=== PATIENT | female | born 1965 | race Caucasian/White ===

== ENCOUNTER 2016-04-08 09:16 | Emergency (ER) | payer OTHER, SELFPAY ==
[2016-04-08] MEDS ORDERED: KETOROLAC 30 MG/ML VIAL (J1885) As Ordered ONE (09:54)
--- NOTE | 2016-04-08 10:42 | REP ---
LEFT ANKLE SERIES, FOUR VIEWS: Four views of the left ankle are performed. There is no acute fracture or dislocation. Ankle mortise is anatomic. Joint spaces appear unremarkable. IMPRESSION: No evidence of fracture or dislocation. Signed by David Molina MD 04/08/2016 01:20 P
--- NOTE | 2016-04-08 10:49 | REP ---
LEFT FOOT: Four views left foot performed. There is no acute fracture or dislocation. Old healed fracture is noted of the distal fifth metatarsal. IMPRESSION: No evidence of acute fracture or dislocation. Old healed fracture fifth metatarsal. Signed by David Molina MD 04/08/2016 01:20 P
--- NOTE | 2016-04-08 11:21 | EDDOCDS ---
Nurse's Notes [facility] Name: Bisi Leong Age: 50 yrs Sex: Female : 1965 Arrival Date: 04/08/2016 Time: 09:16 Bed PR Private MD: NO PRIMARY PHYSICIAN, . Diagnosis: Sprain of ankle-Left;Other sprain of left foot;Fracture of fifth metatarsal bone-Old and healed Presentation: 04/08 09:30 Presenting complaint: Patient states: Was standing on her bed to change a lightbulb jo3 yesterday and injured left ankle. Pain is worse today. Adult Sepsis Screening: The patient does not have new or worsening altered mentation. Patient's respiratory rate is less than 22. Systolic blood pressure is greater than 100. Patient has a qSOFA score of 0- Negative Sepsis Screen. Suicide/Homicide risk assessment- the patient denies having any suicidal and/or homicidal ideations and does not present with any other emotional, behavioral or mental health complaints. 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 Transition of care: patient was not received from another setting of care. 09:30 Acuity: BRENDA Level 4 jo3 09:30 Method Of Arrival: Walkin/Carried/Asstd jo3 Triage Assessment: 09:33 General: Appears in no apparent distress, Behavior is appropriate for age, cooperative. jo3 Pain: Pain currently is 6 out of 10 on a pain scale. At worst was 10 out of 10 on a pain scale. Pt Declines HIV testing. Neurological: Level of Consciousness is awake, alert, Oriented to person, place, time. Respiratory: Airway is patent Respiratory effort is even, unlabored. Derm: Skin is pink, warm & dry. 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 none - PMHx: none; - PSHx: none; - Social history: No barriers to communication noted, The patient speaks fluent Greek, Speaks appropriately for age, Smoking status: Patient uses tobacco products, heavy tobacco smoker. - Family history: Not pertinent. - : The pt / caregiver states he / she is not on anticoagulants. Home medication list is obtained from the patient. - Exposure Risk Screening:: None identified. Screenin:18 Screening information is obtained from the patient. Fall risk: No risks identified. ck1 Assistance ADL's: requires no assistance with activities of daily living. Abuse/DV Screen: The patient / caregiver reports he/she is: not in a situation that causes fear, pain or injury. Nutritional screening: No deficits noted. Advance Directives: Currently, there is no health care proxy. home support is adequate. Assessment: 11:19 General: Appears in no apparent distress, comfortable, Behavior is appropriate for age, ck1 cooperative. Pain: Location: left leg Pain currently is 4 out of 10 on a pain scale. Neurological: Level of Consciousness is awake, alert, obeys commands, Oriented to person, place, time. Derm: Skin is pink, warm & dry. Musculoskeletal: Circulation, motion, and sensation intact Range of motion intact in all extremities. Vital Signs: 09:17 BP 162 / 113; Pulse 94; Resp 18; Temp 97.6(O); Pulse Ox 98% on R/A; Weight 63.5 kg (R); elp Height 5 ft. 6 in. (167.64 cm) (R); Pain 10/10; 09:43 BP 130 / 86 LA Sitting (man/lg); jb5 11:19 BP 154 / 99; Pulse 69; Resp 18; Temp 95.0(T); Pulse Ox 98% on R/A; Pain 4/10; ck1 11:19 Pain 4/10; ck1 09:17 Body Mass Index 22.60 (63.50 kg, 167.64 cm) [facility] Vitals: 09:17 Log In Time: April 08, 2016 at 09:15. [facility] ED Course: 09:17 Patient visited by Aminata Combs PCA. elp 09:17 NO PRIMARY PHYSICIAN, . is Private Physician. elp 09:17 Patient moved to Waiting elp 09:18 Patient visited by Aminata Combs PCA. elp 09:19 Patient moved to Pre RCE elp 09:32 Triage Initiated jo3 09:36 Patient visited by Elizabeth Coats RN. jo3 09:36 Patient moved to Triage 2 jo3 09:40 Hale[facility] Roche [facility]-C [facility]. ef1 09:40 Mario Cottrell MD is Attending Physician. ef1 09:40 Patient visited by Haleigh Roche PA-C. ef1 09:43 Patient visited by Ashley Woodson PCA. jb5 09:59 Patient moved to TR1 ck1 10:19 [facility] Payment Agreement was scanned into [employer] and attached to record. mm15 10:34 Patient visited by Haleigh Roche PA-C. ef1 11:04 Patient moved to PR1 / 25 jb5 11:05 Patient visited by Karo Mazariegos RN. ck1 11:06 [facility]. ef1 11:06 [facility] is Referral Physician. ef1 11:13 Ankle, Complete Returned. EDMS 11:13 Foot, Complete Returned. EDMS 11:17 Patient visited by Ashley Woodson PCA. jb5 11:17 Crutch training done. air cast. jb5 11:19 The patient / caregiver is instructed regarding the plan of care and ED course. ck1 11:19 No IV's were initiated during this patient's visit. No procedures done that require ck1 assistance. Administered Medications: 10:05 Drug: ketorolac 60 mg [ketorolac 30 mg/mL (1 mL) injection solution (2 mL)] Route: IM; jo3 Site: right gluteus; 11:19 Follow up: Pain 4/10 Adult; Response: No Adverse Reaction; Pain is decreased ck1 Order Results: Radiology Order: Ankle, Complete Test: Ankle, Complete REASON FOR EXAMINATION: Trauma; LEFT ANKLE SERIES, FOUR VIEWS:; ; Four views of the left ankle are performed. There is no acute fracture or; dislocation. Ankle mortise is anatomic. Joint spaces appear unremarkable.; ; IMPRESSION:; No evidence of fracture or dislocation.; ; Unreviewed; Radiology Order: Foot, Complete Test: Foot, Complete REASON FOR EXAMINATION: Trauma; LEFT FOOT:; ; Four views left foot performed. There is no acute fracture or dislocation. Old; healed fracture is noted of the distal fifth metatarsal.; ; IMPRESSION:; No evidence of acute fracture or dislocation. Old healed fracture fifth; metatarsal.; ; ; ; Unreviewed; Outcome: 11:06 Discharge ordered by Provider. ef1 11:18 Discharge Assessment: Patient awake, alert and oriented x 3. No cognitive and/or ck1 functional deficits noted. Patient verbalized understanding of disposition instructions. patient administered narcotics - no. The following High Risk Discharge criteria are identified: None. Discharged to home via wheelchair, with crutches. Condition: stable. Discharge instructions given to patient, Instructed on discharge instructions, follow up and referral plans. medication usage, Rest, Ice, Compression and Elevation. crutch walking, Demonstrated understanding of instructions, crutch walking, medications, Pt was receptive of discharge instructions/ teaching. Prescriptions given X 1, Work note provided to patient. No special radiology studies were completed. Property :Personal belongings accompany Pt. 11:20 Patient left the ED. ck1 Signatures: Dispatcher [employer] EDAL Karo MazariegosRN RN ck1 Ashley Woodson, BUSINESS CONTINUITY CONSULTANT BUSINESS CONTINUITY CONSULTANT jb5 Elizabeth CoatsRN RN jo3 Haleigh Roche, PA-C PA-C ef1 Leyla Garcia mm15 Aminata Combs, BUSINESS CONTINUITY CONSULTANT BUSINESS CONTINUITY CONSULTANT elp MTDD
--- NOTE | 2016-04-08 11:21 | EDDOCDS ---
Physician Documentation [facility] Name: Bisi Leong Age: 50 yrs Sex: Female : 1965 Arrival Date: 04/08/2016 Time: 09:16 Bed PR Private MD: NO PRIMARY PHYSICIAN, . Disposition: 04/08/16 11:06 Discharged to Home/Self Care. Impression: Sprain of ankle - Left, Other sprain of left foot, Fracture of fifth metatarsal bone - Old and healed. - Condition is Stable. - Discharge Instructions: Foot Sprain, Ankle Sprain, [id number], Metatarsal Fracture, Undisplaced. - Prescriptions for Mobic 7.5 mg Oral Tablet - take 1 tablet by ORAL route once daily take with food; 20 tablet. - Work Release Form - 5 day, Medication Reconciliation, Local Pharmacy Hours, Referral List Call for Appointment form. - Follow up: [facility]; When: 1 - 2 days; Reason: Further diagnostic work-up, Recheck today's complaints, Continuance of care. [facility] ; When: 1 - 2 days; Reason: Recheck today's complaints, Continuance of care. Follow up: Emergency Department; Reason: Worsening of conditions. - Problem is new. - Symptoms have improved. Historical: - Allergies: No known drug Allergies; - Home Meds: 1. none - PMHx: none; - PSHx: none; - Social history: No barriers to communication noted, The patient speaks fluent Kosovan, Speaks appropriately for age, Smoking status: Patient uses tobacco products, heavy tobacco smoker. - Family history: Not pertinent. - : The pt / caregiver states he / she is not on anticoagulants. Home medication list is obtained from the patient. - Exposure Risk Screening:: None identified. 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 6 in. (167.64 cm) (R); Pain 10/10; 09:43 BP 130 / 86 LA Sitting (man/lg); jb5 11:19 BP 154 / 99; Pulse 69; Resp 18; Temp 95.0(T); Pulse Ox 98% on R/A; Pain 4/10; ck1 11:19 Pain 4/10; ck1 09:17 Body Mass Index 22.60 (63.50 kg, 167.64 cm) elp Procedures: 11:03 Fracture care/splinting: Splint applied to left lateral ankle using Air Cast, applied ef1 by tech. Examined by me, post splint application: neurovascular intact, 2+ distal pulses palpable, brisk capillary refill noted, Patient tolerated well. MDM: 09:40 Recheck B/P ordered. ef1 09:50 Ice Pack ordered. ef1 09:50 ketorolac 60 mg IM once ordered. ef1 09:51 Ankle, Complete Ordered. EDMS 09:53 Foot, Complete Ordered. EDMS 10:02 Financial registration complete. mm15 10:19 [facility] Payment Agreement was scanned into [employer] and attached to record. mm15 11:03 Apply Air Cast to Patient. ordered. ef1 11:03 Crutches ordered. ef1 Administered Medications: 10:05 Drug: ketorolac 60 mg [ketorolac 30 mg/mL (1 mL) injection solution (2 mL)] Route: IM; jo3 Site: right gluteus; 11:19 Follow up: Pain 4/10 Adult; Response: No Adverse Reaction; Pain is decreased ck1 Signatures: Dispatcher [employer] EDMS Karo Mazariegos RN RN ck1 Elizabeth Coats RN RN jo3 Haleigh Roche PAInna PAInna ef1 Leyla Garcia mm15 The chart was reviewed and I authenticate all verbal orders and agree with the evaluation and treatment provided.Attachments: 10:19 [facility] [place] mm15 MTDD
--- NOTE | 2016-04-10 12:21 | EDDOCDS ---
Physician Documentation [facility] Name: Bisi Leong Age: 50 yrs Sex: Female : 1965 Arrival Date: 04/08/2016 Time: 09:16 Bed PR Private MD: NO PRIMARY PHYSICIAN, . Disposition: 04/08/16 11:06 Discharged to Home/Self Care. Impression: Sprain of ankle - Left, Other sprain of left foot, Fracture of fifth metatarsal bone - Old and healed. - Condition is Stable. - Discharge Instructions: Foot Sprain, Ankle Sprain, [id number], Metatarsal Fracture, Undisplaced. - Prescriptions for Mobic 7.5 mg Oral Tablet - take 1 tablet by ORAL route once daily take with food; 20 tablet. - Work Release Form - 5 day, Medication Reconciliation, Local Pharmacy Hours, Referral List Call for Appointment form. - Follow up: [facility]; When: 1 - 2 days; Reason: Further diagnostic work-up, Recheck today's complaints, Continuance of care. [facility] ; When: 1 - 2 days; Reason: Recheck today's complaints, Continuance of care. Follow up: Emergency Department; Reason: Worsening of conditions. - Problem is new. - Symptoms have improved. Historical: - Allergies: No known drug Allergies; - Home Meds: 1. none - PMHx: none; - PSHx: none; - Social history: No barriers to communication noted, The patient speaks fluent Guatemalan, Speaks appropriately for age, Smoking status: Patient uses tobacco products, heavy tobacco smoker. - Family history: Not pertinent. - : The pt / caregiver states he / she is not on anticoagulants. Home medication list is obtained from the patient. - Exposure Risk Screening:: None identified. 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 6 in. (167.64 cm) (R); Pain 10/10; 09:43 BP 130 / 86 LA Sitting (man/lg); jb5 11:19 BP 154 / 99; Pulse 69; Resp 18; Temp 95.0(T); Pulse Ox 98% on R/A; Pain 4/10; ck1 11:19 Pain 4/10; ck1 09:17 Body Mass Index 22.60 (63.50 kg, 167.64 cm) elp Procedures: 11:03 Fracture care/splinting: Splint applied to left lateral ankle using Air Cast, applied ef1 by tech. Examined by me, post splint application: neurovascular intact, 2+ distal pulses palpable, brisk capillary refill noted, Patient tolerated well. MDM: 09:40 Recheck B/P ordered. ef1 09:50 Ice Pack ordered. ef1 09:50 ketorolac 60 mg IM once ordered. ef1 09:51 Ankle, Complete Ordered. EDMS 09:53 Foot, Complete Ordered. EDMS 10:02 Financial registration complete. mm15 10: [facility] Payment Agreement was scanned into [employer] and attached to record. mm15 11:03 Apply Air Cast to Patient. ordered. ef1 11:03 Crutches ordered. ef1 14:54 T-Sheet-- Draft Copy was scanned into [employer] and attached to record. gb 14:54 Radiology Report was scanned into [employer] and attached to record. gb Administered Medications: 10:05 Drug: ketorolac 60 mg [ketorolac 30 mg/mL (1 mL) injection solution (2 mL)] Route: IM; jo3 Site: right gluteus; 11:19 Follow up: Pain 4/10 Adult; Response: No Adverse Reaction; Pain is decreased ck1 Signatures: Dispatcher [employer]Host EDOK Marley Whitman, Reg Reg gb Karo MazariegosRN RN ck1 Elizabeth Coats RN RN jo3 Haleigh Roche, PAInna PAInna ef1 Leyla Garcia mm15 The chart was reviewed and I authenticate all verbal orders and agree with the evaluation and treatment provided.Attachments: 10:19 [facility] Payment Agreement mm15 14:54 T-Sheet-- Draft Copy gb Chart Complete MTDD
--- NOTE | 2016-04-10 12:21 | EDDOCDS ---
Nurse's Notes [facility] Name: Bisi Leong Age: 50 yrs Sex: Female : 1965 Arrival Date: 04/08/2016 Time: 09:16 Bed PR Private MD: NO PRIMARY PHYSICIAN, . Diagnosis: Sprain of ankle-Left;Other sprain of left foot;Fracture of fifth metatarsal bone-Old and healed Presentation: 04/08 09:30 Presenting complaint: Patient states: Was standing on her bed to change a lightbulb jo3 yesterday and injured left ankle. Pain is worse today. Adult Sepsis Screening: The patient does not have new or worsening altered mentation. Patient's respiratory rate is less than 22. Systolic blood pressure is greater than 100. Patient has a qSOFA score of 0- Negative Sepsis Screen. Suicide/Homicide risk assessment- the patient denies having any suicidal and/or homicidal ideations and does not present with any other emotional, behavioral or mental health complaints. Status: Patient is not a mechanical service specialist or dependent. Transition of care: patient was not received from another setting of care. 09:30 Acuity: BRENDA Level 4 jo3 09:30 Method Of Arrival: Walkin/Carried/Asstd jo3 Triage Assessment: 09:33 General: Appears in no apparent distress, Behavior is appropriate for age, cooperative. jo3 Pain: Pain currently is 6 out of 10 on a pain scale. At worst was 10 out of 10 on a pain scale. Pt Declines HIV testing. Neurological: Level of Consciousness is awake, alert, Oriented to person, place, time. Respiratory: Airway is patent Respiratory effort is even, unlabored. Derm: Skin is pink, warm & dry. 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 none - PMHx: none; - PSHx: none; - Social history: No barriers to communication noted, The patient speaks fluent Turkmen, Speaks appropriately for age, Smoking status: Patient uses tobacco products, heavy tobacco smoker. - Family history: Not pertinent. - : The pt / caregiver states he / she is not on anticoagulants. Home medication list is obtained from the patient. - Exposure Risk Screening:: None identified. Screenin:18 Screening information is obtained from the patient. Fall risk: No risks identified. ck1 Assistance ADL's: requires no assistance with activities of daily living. Abuse/DV Screen: The patient / caregiver reports he/she is: not in a situation that causes fear, pain or injury. Nutritional screening: No deficits noted. Advance Directives: Currently, there is no health care proxy. home support is adequate. Assessment: 11:19 General: Appears in no apparent distress, comfortable, Behavior is appropriate for age, ck1 cooperative. Pain: Location: left leg Pain currently is 4 out of 10 on a pain scale. Neurological: Level of Consciousness is awake, alert, obeys commands, Oriented to person, place, time. Derm: Skin is pink, warm & dry. Musculoskeletal: Circulation, motion, and sensation intact Range of motion intact in all extremities. Vital Signs: 09:17 BP 162 / 113; Pulse 94; Resp 18; Temp 97.6(O); Pulse Ox 98% on R/A; Weight 63.5 kg (R); elp Height 5 ft. 6 in. (167.64 cm) (R); Pain 10/10; 09:43 BP 130 / 86 LA Sitting (man/lg); jb5 11:19 BP 154 / 99; Pulse 69; Resp 18; Temp 95.0(T); Pulse Ox 98% on R/A; Pain 4/10; ck1 11:19 Pain 4/10; ck1 09:17 Body Mass Index 22.60 (63.50 kg, 167.64 cm) [facility] Vitals: 09:17 Log In Time: April 08, 2016 at 09:15. [facility] ED Course: 09:17 Patient visited by Aminata Combs PCA. elp 09:17 NO PRIMARY PHYSICIAN, . is Private Physician. elp 09:17 Patient moved to Waiting elp 09:18 Patient visited by Aminata Combs PCA. elp 09:19 Patient moved to Pre RCE elp 09:32 Triage Initiated jo3 09:36 Patient visited by Elizabeth Coats RN. jo3 09:36 Patient moved to Triage 2 jo3 09:40 Hale[facility]. ef1 09:40 Mario Cottrell MD is Attending Physician. ef1 09:40 Patient visited by Haleigh Roche PA-C. ef1 09:43 Patient visited by Ashley Woodson PCA. jb5 09:59 Patient moved to TR1 ck1 10:19 [facility] Payment Agreement was scanned into [employer] and attached to record. mm15 10:34 Patient visited by Haleigh Roche PA-C. ef1 11:04 Patient moved to PR1 / 25 jb5 11:05 Patient visited by Karo Mazariegos RN. ck1 11:06 [facility] ef1 11:06 [facility] is Referral Physician. ef1 11:13 Ankle, Complete Returned. EDMS 11:13 Foot, Complete Returned. EDMS 11:17 Patient visited by Ashley Woodson PCA. jb5 11:17 Crutch training done. air cast. jb5 11:19 The patient / caregiver is instructed regarding the plan of care and ED course. ck1 11:19 No IV's were initiated during this patient's visit. No procedures done that require ck1 assistance. 14:54 T-Sheet-- Draft Copy was scanned into [employer] and attached to record. gb 14:54 Radiology Report was scanned into [employer] and attached to record. gb Administered Medications: 10:05 Drug: ketorolac 60 mg [ketorolac 30 mg/mL (1 mL) injection solution (2 mL)] Route: IM; jo3 Site: right gluteus; 11:19 Follow up: Pain 4/10 Adult; Response: No Adverse Reaction; Pain is decreased ck1 Order Results: Radiology Order: Ankle, Complete Test: Ankle, Complete REASON FOR EXAMINATION: Trauma; LEFT ANKLE SERIES, FOUR VIEWS:; ; Four views of the left ankle are performed. There is no acute fracture or; dislocation. Ankle mortise is anatomic. Joint spaces appear unremarkable.; ; IMPRESSION:; ; No evidence of fracture or dislocation.; ; ; Signed by; David Molina MD 04/08/2016 01:20 P; Radiology Order: Foot, Complete Test: Foot, Complete REASON FOR EXAMINATION: Trauma; LEFT FOOT:; ; Four views left foot performed. There is no acute fracture or dislocation. Old; healed fracture is noted of the distal fifth metatarsal.; ; IMPRESSION:; ; No evidence of acute fracture or dislocation. Old healed fracture fifth; metatarsal.; ; ; Signed by; David Molina MD 04/08/2016 01:20 P; Outcome: 11:06 Discharge ordered by Provider. ef1 11:18 Discharge Assessment: Patient awake, alert and oriented x 3. No cognitive and/or ck1 functional deficits noted. Patient verbalized understanding of disposition instructions. patient administered narcotics - no. The following High Risk Discharge criteria are identified: None. Discharged to home via wheelchair, with crutches. Condition: stable. Discharge instructions given to patient, Instructed on discharge instructions, follow up and referral plans. medication usage, Rest, Ice, Compression and Elevation. crutch walking, Demonstrated understanding of instructions, crutch walking, medications, Pt was receptive of discharge instructions/ teaching. Prescriptions given X 1, Work note provided to patient. No special radiology studies were completed. Property :Personal belongings accompany Pt. 11:20 Patient left the ED. ck1 Signatures: Dispatcher [employer] EDMS Marley Whitman, Reg Reg gb Karo MazariegosRN RN ck1 Ashley Woodson, SERVICE TEAM LEADER SERVICE TEAM LEADER jb5 Elizabeth Coats RN RN jo3 Haleigh Roche, PA-C PA-C ef1 Leyla Garcia mm15 Aminata Combs, SERVICE TEAM LEADER SERVICE TEAM LEADER elp Chart Complete MTDD
--- NOTE | 2016-04-10 12:21 | EDDOCDS ---
Physician Documentation [facility] Name: Bisi Leong Age: 50 yrs Sex: Female : 1965 Arrival Date: 04/08/2016 Time: 09:16 Bed PR Private MD: NO PRIMARY PHYSICIAN, . Disposition: 04/08/16 11:06 Discharged to Home/Self Care. Impression: Sprain of ankle - Left, Other sprain of left foot, Fracture of fifth metatarsal bone - Old and healed. - Condition is Stable. - Discharge Instructions: Foot Sprain, Ankle Sprain, [id number], Metatarsal Fracture, Undisplaced. - Prescriptions for Mobic 7.5 mg Oral Tablet - take 1 tablet by ORAL route once daily take with food; 20 tablet. - Work Release Form - 5 day, Medication Reconciliation, Local Pharmacy Hours, Referral List Call for Appointment form. - Follow up: [facility]; When: 1 - 2 days; Reason: Further diagnostic work-up, Recheck today's complaints, Continuance of care. [facility] ; When: 1 - 2 days; Reason: Recheck today's complaints, Continuance of care. Follow up: Emergency Department; Reason: Worsening of conditions. - Problem is new. - Symptoms have improved. Historical: - Allergies: No known drug Allergies; - Home Meds: 1. none - PMHx: none; - PSHx: none; - Social history: No barriers to communication noted, The patient speaks fluent [place], Speaks appropriately for age, Smoking status: Patient uses tobacco products, heavy tobacco smoker. - Family history: Not pertinent. - : The pt / caregiver states he / she is not on anticoagulants. Home medication list is obtained from the patient. - Exposure Risk Screening:: None identified. 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 6 in. (167.64 cm) (R); Pain 10/10; 09:43 BP 130 / 86 LA Sitting (man/lg); jb5 11:19 BP 154 / 99; Pulse 69; Resp 18; Temp 95.0(T); Pulse Ox 98% on R/A; Pain 4/10; ck1 11:19 Pain 4/10; ck1 09:17 Body Mass Index 22.60 (63.50 kg, 167.64 cm) elp Procedures: 11:03 Fracture care/splinting: Splint applied to left lateral ankle using Air Cast, applied ef1 by tech. Examined by me, post splint application: neurovascular intact, 2+ distal pulses palpable, brisk capillary refill noted, Patient tolerated well. MDM: 09:40 Recheck B/P ordered. ef1 09:50 Ice Pack ordered. ef1 09:50 ketorolac 60 mg IM once ordered. ef1 09:51 Ankle, Complete Ordered. EDMS 09:53 Foot, Complete Ordered. EDMS 10:02 Financial registration complete. mm15 10: [facility] Payment Agreement was scanned into [employer] and attached to record. mm15 11:03 Apply Air Cast to Patient. ordered. ef1 11:03 Crutches ordered. ef1 14:54 T-Sheet-- Draft Copy was scanned into [employer] and attached to record. gb 14:54 Radiology Report was scanned into [employer] and attached to record. gb Administered Medications: 10:05 Drug: ketorolac 60 mg [ketorolac 30 mg/mL (1 mL) injection solution (2 mL)] Route: IM; jo3 Site: right gluteus; 11:19 Follow up: Pain 4/10 Adult; Response: No Adverse Reaction; Pain is decreased ck1 Signatures: Dispatcher [employer] EDKY Marley Whitman, Reg Reg gb Karo MazariegosRN RN ck1 Elizabeth Coats RN RN jo3 Haleigh Roche, PAInna PAInna ef1 Leyla Garcia mm15 The chart was reviewed and I authenticate all verbal orders and agree with the evaluation and treatment provided.Attachments: 10:19 [facility] Payment Agreement mm15 14:54 T-Sheet-- Draft Copy gb Chart Complete MTDD
== END 2016-04-08 11:20 | disposition home or self-care (01) ==
LOC: M ED 09:16
DX: S93.402A Sprain of unspecified ligament of left ankle, initial encounter (principal); S93.602A Unspecified sprain of left foot, initial encounter; X58.XXXA Exposure to other specified factors, initial encounter; Y92.003 Bedroom of unspecified non-institutional (private) residence as the place of occurrence of the external cause; Y93.89 Activity, other specified; Y99.8 Other external cause status; F17.210 Nicotine dependence, cigarettes, uncomplicated
CPT/HCPCS: 73610; 73630; 96372; 99284; J1885

== ENCOUNTER → 2020-05-12 | Outpatient (REF) | payer OTHER ==
[~2020-05-12] MED LIST: BENA25CA4 PO; PEPC1TAB5 PO; PRED20TA PO
[2020-05-12 13:41] LABS: BASO # 0.1 10^3/uL (0.0-0.2); BASO % 0.6 % (0.0-1.0); EOS # 0.3 10^3/uL (0.0-0.5); EOS % 3.8 % (0.0-3.0); HEMATOCRIT 43.3 % (36.0-47.0); HEMOGLOBIN 14.1 g/dl (12.0-15.5); LYMPH % 24.4 % (24.0-44.0); MEAN CORPUSCULAR HEMOGLOBIN 32.9 pg (27.0-33.0); MEAN CORPUSCULAR HGB CONC 32.6 g/dl (32.0-36.5); MEAN CORPUSCULAR VOLUME 100.9 fl (80.0-96.0); MONO # 0.5 10^3/uL (0.0-0.8); NEUTROPHILS # 5.3 10^3/uL (1.5-8.5); NEUTROPHILS % 64.8 % (36.0-66.0); PLATELET COUNT, AUTOMATED 283 10^3/uL (150-450); RED BLOOD COUNT 4.29 10^6/uL (4.00-5.40); WHITE BLOOD COUNT 8.1 10^3/uL (4.0-10.0)
[2020-05-12 15:01] LABS: ALT/SGPT 28 U/L (12-78); BILIRUBIN,TOTAL 0.5 MG/DL (0.2-1.0); BLOOD UREA NITROGEN 6 MG/DL (7-18); CALCIUM LEVEL 9.1 MG/DL (8.5-10.1); CARBON DIOXIDE LEVEL 27 MEQ/L (21-32); CHLORIDE LEVEL 101 MEQ/L (98-107); CHOLESTEROL LEVEL 241 MG/DL (<200); CHOLESTEROL RISK RATIO 3.492 (<5); CREATININE FOR GFR 0.46 MG/DL (0.55-1.30); GLOMERULAR FILTRATION RATE > 60.0 (>51); GLUCOSE, FASTING 80 MG/DL (70-100); HDL CHOLESTEROL 69 MG/DL (>40); LDL CHOLESTEROL 156 MG/DL (<100); NON-HDL-C 172 MG/DL; POTASSIUM SERUM 4.3 MEQ/L (3.5-5.1); SODIUM LEVEL 135 MEQ/L (136-145); THYROID STIMULATING HORMONE 0.477 uIU/ML (0.358-3.740); TOTAL PROTEIN 6.8 GM/DL (6.4-8.2); TRIGLYCERIDES LEVEL 79 MG/DL (<150)
== END ==
LOC: M LAB REF 11:12
PROVIDERS: ATTEND Pediatrics
DX: R03.0 Elevated blood-pressure reading, without diagnosis of hypertension (principal)

== ENCOUNTER → 2020-05-22 | Outpatient (CLI) | payer OTHER ==
--- NOTE | 2020-05-22 08:09 | REP ---
INDICATION: FAMILY HX ISCHEMIC HEART DX/ANEURYSM COMPARISON: None. TECHNIQUE: Real time fuentes scale ultrasound examination using curved array transducer. FINDINGS: The abdominal aorta demonstrate age-related atherosclerotic changes without evidence for aneurysm. Proximal aorta: 2.5 x 2.5 cm Aorta at renal arteries: 1.6 x 1.7 cm Mid aorta: 1.7 x 1.6 cm Distal aorta: 1.3 x 1.2 cm Right common iliac artery: 0.7 x 0.9 cm Left common iliac artery: 0.8 x 0.9 cm IMPRESSION: Generalized age-related changes. No aneurysm. <Electronically signed by Malachi Bishop > 05/22/20 0825
== END ==
LOC: M RAD 07:06
PROVIDERS: ATTEND Pediatrics
DX: Z82.49 Family history of ischemic heart disease and other diseases of the circulatory system (principal)

== ENCOUNTER → 2022-04-07 | Outpatient (REF) | payer OTHER ==
[2022-04-07 16:50] LABS: BASO % 0.6 % (0.0-1.0); EOS # 0.3 10^3/uL (0.0-0.5); EOS % 4.8 % (0.0-3.0); HEMATOCRIT 42.3 % (36.0-47.0); HEMOGLOBIN 14.2 g/dl (12.0-15.5); LYMPH # 1.4 10^3/uL (1.5-5.0); LYMPH % 22.6 % (24.0-44.0); MEAN CORPUSCULAR HEMOGLOBIN 32.3 pg (27.0-33.0); MEAN CORPUSCULAR HGB CONC 33.6 g/dl (32.0-36.5); MEAN CORPUSCULAR VOLUME 96.4 fl (80.0-96.0); MONO # 0.5 10^3/uL (0.0-0.8); MONO % 8.5 % (2.0-8.0); NEUTROPHILS % 63.3 % (36.0-66.0); PLATELET COUNT, AUTOMATED 338 10^3/uL (150-450); RED BLOOD COUNT 4.39 10^6/uL (4.00-5.40); WHITE BLOOD COUNT 6.3 10^3/uL (4.0-10.0)
[2022-04-07 22:18] LABS: ALBUMIN 3.9 G/DL (3.2-5.2); ALKALINE PHOSPHATASE 72 U/L (46-116); ALT/SGPT 29 U/L (7.0-40); AST/SGOT 30 U/L (<34); BILIRUBIN,TOTAL 0.6 MG/DL (0.3-1.2); BLOOD UREA NITROGEN 11 MG/DL (9-23); CALCIUM LEVEL 9.7 MG/DL (8.5-10.1); CARBON DIOXIDE LEVEL 29 MMOL/L (20-31); CHLORIDE LEVEL 98 MMOL/L (98-107); CHOLESTEROL LEVEL 249 MG/DL (<200); CHOLESTEROL RISK RATIO 2.82 (<5); CREATININE FOR GFR 0.59 MG/DL (0.55-1.30); GLOMERULAR FILTRATION RATE > 60.0 (>51); GLUCOSE, FASTING 94 MG/DL (60-100); HDL CHOLESTEROL 88.2 MG/DL (>40); LDL CHOLESTEROL 147.8 MG/DL (<100); NON-HDL-C 161 MG/DL; POTASSIUM SERUM 5.2 MMOL/L (3.5-5.1); SODIUM LEVEL 131 MMOL/L (136-145); TRIGLYCERIDES LEVEL 65 MG/DL (<150)
[2022-04-07 22:22] LABS: THYROID STIMULATING HORMONE 1.258 uIU/ML (0.55-4.78)
== END ==
LOC: M LAB REF 16:15
PROVIDERS: ATTEND Pediatrics
DX: E78.5 Hyperlipidemia, unspecified (principal); F10.20 Alcohol dependence, uncomplicated

== ENCOUNTER → 2022-04-13 | Outpatient (REF) | payer OTHER ==
[2022-04-13 17:15] LABS: BLOOD UREA NITROGEN 8 MG/DL (9-23); CALCIUM LEVEL 8.8 MG/DL (8.5-10.1); CARBON DIOXIDE LEVEL 26 MMOL/L (20-31); CHLORIDE LEVEL 93 MMOL/L (98-107); GLUCOSE, FASTING 70 MG/DL (60-100); POTASSIUM SERUM 4.1 MMOL/L (3.5-5.1); SODIUM LEVEL 126 MMOL/L (136-145)
[2022-04-13 20:18] LABS: CREATININE FOR GFR 0.66 MG/DL (0.55-1.30); GLOMERULAR FILTRATION RATE > 60.0 (>51)
[2022-04-13 20:39] LABS: OSMOLALITY SERUM 274 MOSM/KG (275-295)
== END ==
LOC: M LAB REF 13:23
PROVIDERS: ATTEND Pediatrics
DX: E87.1 Hypo-osmolality and hyponatremia (principal)

== ENCOUNTER → 2022-04-22 | Outpatient (CLI) | payer OTHER | LOC: M WHC 13:17 | PROVIDERS: ATTEND Pediatrics | DX: Z12.31 Encounter for screening mammogram for malignant neoplasm of breast (principal); Z13.820 Encounter for screening for osteoporosis; M81.0 Age-related osteoporosis without current pathological fracture ==

== ENCOUNTER → 2022-04-27 | Outpatient (CLI) | payer OTHER ==
[2022-04-27 11:50] LABS: OSMOLALITY URINE 223 MOSM/KG (50-1400)
[2022-04-27 12:01] LABS: INR 0.87
[2022-04-27 12:02] LABS: PARTIAL THROMBOPLASTIN TIME 28.6 SECONDS (24.8-34.2)
[2022-04-27 12:12] LABS: SODIUM,RANDOM URINE 35 MMOL/L
[2022-04-27 12:24] LABS: BLOOD UREA NITROGEN 12 MG/DL (9-23); CARBON DIOXIDE LEVEL 28 MMOL/L (20-31); CHLORIDE LEVEL 96 MMOL/L (98-107); CREATININE FOR GFR 0.61 MG/DL (0.55-1.30); GLOMERULAR FILTRATION RATE > 60.0 (>51); GLUCOSE, FASTING 80 MG/DL (60-100); POTASSIUM SERUM 4.6 MMOL/L (3.5-5.1); SODIUM LEVEL 133 MMOL/L (136-145)
[2022-04-27 12:32] LABS: OSMOLALITY SERUM 291 MOSM/KG (275-295)
== END ==
LOC: M LAB 11:17
PROVIDERS: ATTEND Pediatrics
DX: E87.1 Hypo-osmolality and hyponatremia (principal)

== ENCOUNTER → 2022-05-12 | Outpatient (CLI) | payer OTHER | LOC: M WHC 08:15 | PROVIDERS: ATTEND Pediatrics | DX: Z12.31 Encounter for screening mammogram for malignant neoplasm of breast (principal); Z13.820 Encounter for screening for osteoporosis ==

== ENCOUNTER → 2022-05-20 | Outpatient (CLI) | payer OTHER ==
[~2022-05-20] MED LIST changes: +**SFHN** LIDOCAINE 1% MDV 20ML VIAL ONE; +**SFHN** SODIUM BICARBONATE 8.4% 10MEQ 10ML VIAL ONE; +AMLO1TAB24 PO; +B-1100TA2 PO; +CALC600T57 PO; +CLON0.5T17 PO; +CYCL5TAB PO; +HYDR-3363 PO; +LISI20TA33 PO; +PROA1AER2 INH; +SERT-141 PO; +VITMTA PO
[2022-05-20 13:15] VITALS: BP 106/78
== END ==
LOC: M WHCPRO 12:14
PROVIDERS: ATTEND Pediatrics
DX: C50.411 Malignant neoplasm of upper-outer quadrant of right female breast (principal); R92.8 Other abnormal and inconclusive findings on diagnostic imaging of breast

== ENCOUNTER → 2022-06-01 | Outpatient (CLI) | payer OTHER ==
[~2022-06-01] MED LIST changes: -**SFHN** LIDOCAINE 1% MDV 20ML VIAL ONE; -**SFHN** SODIUM BICARBONATE 8.4% 10MEQ 10ML VIAL ONE
[2022-06-01 17:18] LABS: BLOOD UREA NITROGEN 7 MG/DL (9-23); CALCIUM LEVEL 9.3 MG/DL (8.5-10.1); CARBON DIOXIDE LEVEL 26 MMOL/L (20-31); CHLORIDE LEVEL 100 MMOL/L (98-107); CREATININE FOR GFR 0.65 MG/DL (0.55-1.30); GLOMERULAR FILTRATION RATE > 60.0 (>51); GLUCOSE, FASTING 85 MG/DL (60-100); POTASSIUM SERUM 4.6 MMOL/L (3.5-5.1); SODIUM LEVEL 132 MMOL/L (136-145)
== END ==
LOC: M PLALAB 15:16
PROVIDERS: ATTEND Surgery
DX: C50.911 Malignant neoplasm of unspecified site of right female breast (principal)

== ENCOUNTER → 2022-06-02 | Outpatient (CLI) | payer OTHER ==
[2022-06-02 08:36] VITALS: BP 126/80
== END ==
LOC: M WHCPRO 07:41
PROVIDERS: ATTEND Surgery
DX: C79.89 Secondary malignant neoplasm of other specified sites (principal); C50.911 Malignant neoplasm of unspecified site of right female breast
CPT/HCPCS: 10035; 38505; 88305; A4648

== ENCOUNTER → 2022-06-21 | Outpatient (CLI) | payer OTHER ==
[~2022-06-21] VITALS: Ht 167.6 cm; Wt 61.0 kg
[~2022-06-21] MED LIST changes: +DEXA4TA PO; +LIDOCAINE 1% MDV 20ML VIAL As Ordered ONE; +MIDAZOLAM INJ 2MG/2ML VIAL As Ordered ONE; +NS 1,000 ML IV SCH; +ceFAZolin 2 GM/D5W 50 ML IV BAG As Ordered ONE; +ceFAZolin SOD 2 GM in IV 1 EA IV ONE; +diphenhydrAMINE 50MG/ML VIAL As Ordered ONE; +fentaNYL 100 MCG/2 ML INJECTION As Ordered ONE
[2022-06-21 12:00] VITALS: BP 131/88
== END ==
LOC: M IRPRO 07:45
PROVIDERS: ATTEND Internal Medicine Medical Oncology
DX: C50.411 Malignant neoplasm of upper-outer quadrant of right female breast (principal)
CPT/HCPCS: 36561; 99152; 99153; C1769; C1788; C1894; J0690; J1200; J2250; J3010

== ENCOUNTER → 2022-07-06 | Outpatient (REF) | payer OTHER ==
[~2022-07-06] MED LIST changes: -LIDOCAINE 1% MDV 20ML VIAL As Ordered ONE; -MIDAZOLAM INJ 2MG/2ML VIAL As Ordered ONE; -NS 1,000 ML IV SCH; +ONDA-84 PO; +PROC10TA5 PO; -ceFAZolin 2 GM/D5W 50 ML IV BAG As Ordered ONE; -ceFAZolin SOD 2 GM in IV 1 EA IV ONE; -diphenhydrAMINE 50MG/ML VIAL As Ordered ONE; -fentaNYL 100 MCG/2 ML INJECTION As Ordered ONE
== END ==
LOC: M WUC 19:06
PROVIDERS: ATTEND Physician Assistant
DX: R05.9 Cough, unspecified (principal)

== ENCOUNTER → 2022-10-29 | Outpatient (CLI) | payer OTHER ==
[~2022-10-29] MED LIST changes: +CALC-356 PO; +LIDO30CR18 TOP; +MAGN400C PO; +NYST-38 PO; +POTA-298 PO; +ZOLO100T PO
[2022-10-29 19:10] LABS: BASO % 0.1 % (0.0-1.0); HEMATOCRIT 24.9 % (36.0-47.0); HEMOGLOBIN 8.9 g/dl (12.0-15.5); LYMPH # 1.9 10^3/uL (1.5-5.0); LYMPH % 20.9 % (24.0-44.0); MEAN CORPUSCULAR HGB CONC 35.7 g/dl (32.0-36.5); MEAN CORPUSCULAR VOLUME 106.4 fl (80.0-96.0); MONO # 0.6 10^3/uL (0.0-0.8); MONO % 6.7 % (2.0-8.0); NEUTROPHILS # 6.4 10^3/uL (1.5-8.5); NEUTROPHILS % 71.5 % (36.0-66.0); RED BLOOD COUNT 2.34 10^6/uL (4.00-5.40); WHITE BLOOD COUNT 8.9 10^3/uL (4.0-10.0)
[2022-10-29 19:37] LABS: PLATELET COUNT, AUTOMATED 48 10^3/uL (150-450)
[2022-10-29 20:11] LABS: BLOOD UREA NITROGEN < 5 MG/DL (9-23); CALCIUM LEVEL 8.7 MG/DL (8.5-10.1); CARBON DIOXIDE LEVEL 24 MMOL/L (20-31); CHLORIDE LEVEL 97 MMOL/L (98-107); CREATININE FOR GFR 0.55 MG/DL (0.55-1.30); GLOMERULAR FILTRATION RATE > 60.0 (>51); GLUCOSE, FASTING 93 MG/DL (60-100); MAGNESIUM LEVEL 1.2 MG/DL (1.8-2.4); POTASSIUM SERUM 2.6 MMOL/L (3.5-5.1); SODIUM LEVEL 130 MMOL/L (136-145)
== END ==
LOC: M RAD 14:21
PROVIDERS: ATTEND Pediatrics
DX: Z01.818 Encounter for other preprocedural examination (principal)

== ENCOUNTER 2022-11-01 11:57 | Inpatient (IN) | payer OTHER ==
[~2022-11-01] VITALS: Ht 167.6 cm; Wt 61.0 kg
[~2022-11-01 11:57] MED LIST changes: -CALC-356 PO; -ZOLO100T PO
[2022-11-01 12:30] VITALS: BP 100/65; TEMP 97.5; O2SAT 100
[2022-11-01] MEDS ORDERED: CYCLOBENZAPRINE 5MG TABLET PO PRN (12:55)
[2022-11-01 13:21] LABS: IONIZED CALCIUM 4.7 MG/DL (4.5-5.3)
[2022-11-01 13:35] LABS: BASO % 0.2 % (0.0-1.0); HEMATOCRIT 23.6 % (36.0-47.0); HEMOGLOBIN 8.4 g/dl (12.0-15.5); LYMPH % 17.5 % (24.0-44.0); MEAN CORPUSCULAR HEMOGLOBIN 38.7 pg (27.0-33.0); MEAN CORPUSCULAR HGB CONC 35.6 g/dl (32.0-36.5); MEAN CORPUSCULAR VOLUME 108.8 fl (80.0-96.0); MONO % 8.2 % (2.0-8.0); NEUTROPHILS # 8.4 10^3/uL (1.5-8.5); PLATELET COUNT, AUTOMATED 129 10^3/uL (150-450); RED BLOOD COUNT 2.17 10^6/uL (4.00-5.40); WHITE BLOOD COUNT 11.6 10^3/uL (4.0-10.0)
[2022-11-01 13:47] LABS: INR 0.99; PROTHROMBIN TIME 12.8 SECONDS (12.5-14.5)
[2022-11-01 13:48] LABS: PARTIAL THROMBOPLASTIN TIME 26.3 SECONDS (24.8-34.2)
[2022-11-01 14:02] LABS: THYROID STIMULATING HORMONE 0.95 uIU/ML (0.55-4.78); THYROXINE (T4) 6.8 UG/DL (4.5-10.9)
[2022-11-01 14:03] LABS: FREE THYROXINE INDEX 2.6 % (1.3-4.8); T UPTAKE 37.7 % (22.5-37.0)
[2022-11-01 14:16] LABS: ALBUMIN 3.1 G/DL (3.2-5.2); ALKALINE PHOSPHATASE 70 U/L (46-116); ALT/SGPT 12 U/L (7.0-40); AST/SGOT 9 U/L (<34); BILIRUBIN,TOTAL < 0.2 MG/DL (0.3-1.2); BLOOD UREA NITROGEN < 5 MG/DL (9-23); CALCIUM LEVEL 8.5 MG/DL (8.5-10.1); CARBON DIOXIDE LEVEL 23 MMOL/L (20-31); CHLORIDE LEVEL 102 MMOL/L (98-107); CREATININE FOR GFR 0.55 MG/DL (0.55-1.30); GLOMERULAR FILTRATION RATE > 60.0 (>51); GLUCOSE, FASTING 68 MG/DL (60-100); MAGNESIUM LEVEL 1.2 MG/DL (1.8-2.4); POTASSIUM SERUM 2.9 MMOL/L (3.5-5.1); SODIUM LEVEL 133 MMOL/L (136-145); TOTAL PROTEIN 5.4 G/DL (5.7-8.2)
[2022-11-01] MEDS: POTASSIUM CHLORIDE 10MEQ SR TABLET PO SCH ×3 (14:39→21:11)
[2022-11-01] MEDS: MAG SULF 1GM/100ML (MAG RUN) 1 GM in IV 1 EA IV SCH ×2 (14:39→15:50)
[2022-11-01] MEDS: MAGNESIUM OXIDE 400MG TAB (MAG-OX) PO SCH ×2 (14:40→21:11)
[2022-11-01] MEDS: NS 1,000 ML IV SCH (14:44)
[2022-11-01] MEDS ORDERED: IPRATROPIUM 0.5MG/ALBUTEROL 2.5MG INH SOL UD 3ML (DUONEB) NEB PRN (15:00)
[2022-11-01 15:35] LABS: IRON (FE) 99 UG/DL (50-170); PERCENT SATURATION 35.1 % (13.2-45.0); TOTAL IRON BINDING CAPACITY 282 UG/DL (250-425)
[2022-11-01 15:38] LABS: FERRITIN 271.8 NG/ML (7.3-270.7)
[2022-11-01 15:49] LABS: ERYTHROCYTE SEDIMENTATION RATE 8 mm/hr (0-30)
[2022-11-01 15:53] LABS: PROCALCITONIN 0.05 ng/ml
[2022-11-01 16:00] VITALS: BP 104/64; TEMP 98; O2SAT 96
[2022-11-01] MEDS ORDERED: ONDA-84 PO (16:01)
[2022-11-01] MEDS ORDERED: CALC-356 PO (16:01)
[2022-11-01] MEDS ORDERED: ZOLO100T PO (16:01)
[2022-11-01] MEDS ORDERED: LIDO30CR18 TOP (16:04)
[2022-11-01] MEDS ORDERED: PROC10TA5 PO (16:08)
[2022-11-01] MEDS ORDERED: HOME MED LIST COMPLETE! XX SCH (16:30)
[2022-11-01] MEDS ORDERED: NYSTATIN 500,000U/5ML SUSP UDC PO SCH (17:00)
[2022-11-01] MEDS: NYSTATIN 500,000U/5ML SUSP UDC SSP SCH ×2 (17:44→21:10)
[2022-11-01 18:03] LABS: IONIZED CALCIUM 4.6 MG/DL (4.5-5.3)
[2022-11-01 18:34] LABS: MAGNESIUM LEVEL 1.8 MG/DL (1.8-2.4); POTASSIUM SERUM 3.4 MMOL/L (3.5-5.1)
[2022-11-01] MEDS ORDERED: POTASSIUM CHLORIDE 10MEQ SR TABLET PO ONE (19:00)
[2022-11-01] MEDS ORDERED: MAG SULF 1GM/100ML (MAG RUN) 1 GM in IV 1 EA IV ONE (19:00)
[2022-11-01] MEDS ORDERED: LORazepam 2 MG TAB PO PRN (19:40)
[2022-11-01] MEDS ORDERED: NICOTINE POLACRILEX 2 MG GUM PO PRN (19:40)
[2022-11-01] MEDS: NICOTINE 14 MG/24 HR TRANSDERMAL TD SCH (19:53)
[2022-11-01 21:00] VITALS: BP 92/60; TEMP 97.8; O2SAT 95
[2022-11-01] MEDS ORDERED: RAMELTEON 8 MG TAB (ROZEREM) PO SCH (21:00)
[2022-11-01] MEDS: THIAMINE 100 MG TAB PO SCH (21:11)
[2022-11-01] MEDS: MULTIVITAMINS/MINERALS THERAP 1 TAB PO SCH (21:14)
[2022-11-01] MEDS: FOLIC ACID 1MG TAB PO SCH (21:14)
[2022-11-01 22:46] LABS: C REACTIVE PROTEIN QUANTITATIV < 0.40 MG/DL (<1.0)
[2022-11-01 23:56] LABS: IONIZED CALCIUM 4.6 MG/DL (4.5-5.3)
[2022-11-02 00:27] LABS: MAGNESIUM LEVEL 1.9 MG/DL (1.8-2.4); POTASSIUM SERUM 4.3 MMOL/L (3.5-5.1)
[2022-11-02] MEDS: NS 1,000 ML IV SCH (02:54)
[2022-11-02 04:23] VITALS: BP 147/79; TEMP 98.5; O2SAT 99
[2022-11-02 05:00] LABS: BASO % 0.1 % (0.0-1.0); EOS % 0.1 % (0.0-3.0); HEMATOCRIT 23.1 % (36.0-47.0); HEMOGLOBIN 8.1 g/dl (12.0-15.5); LYMPH # 1.5 10^3/uL (1.5-5.0); LYMPH % 19.6 % (24.0-44.0); MEAN CORPUSCULAR HEMOGLOBIN 38.6 pg (27.0-33.0); MEAN CORPUSCULAR HGB CONC 35.1 g/dl (32.0-36.5); MONO # 0.8 10^3/uL (0.0-0.8); MONO % 10.6 % (2.0-8.0); NEUTROPHILS # 5.2 10^3/uL (1.5-8.5); NEUTROPHILS % 68.7 % (36.0-66.0); PLATELET COUNT, AUTOMATED 137 10^3/uL (150-450); WHITE BLOOD COUNT 7.6 10^3/uL (4.0-10.0)
[2022-11-02] MEDS ORDERED: ceFAZolin SOD 2 GM in IV 1 EA IV ONE (06:00)
[2022-11-02 06:48] LABS: MAGNESIUM LEVEL 1.8 MG/DL (1.8-2.4); POTASSIUM SERUM 4.9 MMOL/L (3.5-5.1)
[2022-11-02 08:00] VITALS: BP 126/81; TEMP 97.6; O2SAT 99
[2022-11-02] MEDS ORDERED: propofoL 200 MG/20 ML VIAL As Ordered ONE ×2 (08:48→10:13)
[2022-11-02] MEDS ORDERED: SUGAMMADEX SODIUM 500 MG/5 ML VIAL (BRIDION) As Ordered ONE (08:48)
[2022-11-02] MEDS ORDERED: ROCURONIUM BROMIDE 50MG/5ML VIAL As Ordered ONE (08:48)
[2022-11-02] MEDS ORDERED: LIDOCAINE 2% 100MG/5ML SDV (FOR ANES.) As Ordered ONE (08:48)
[2022-11-02] MEDS ORDERED: ONDANSETRON 4MG 2ML VIAL As Ordered ONE (08:48)
[2022-11-02] MEDS ORDERED: LABETALOL 100MG/20ML VIAL As Ordered ONE (08:51)
[2022-11-02] MEDS: NYSTATIN 500,000U/5ML SUSP UDC SSP SCH ×2 (09:00→13:00)
[2022-11-02] MEDS: THIAMINE 100 MG TAB PO SCH (09:00)
[2022-11-02] MEDS: MAGNESIUM OXIDE 400MG TAB (MAG-OX) PO SCH (09:00)
[2022-11-02] MEDS: POTASSIUM CHLORIDE 10MEQ SR TABLET PO SCH (09:00)
[2022-11-02] MEDS: MULTIVITAMINS/MINERALS THERAP 1 TAB PO SCH (09:00)
[2022-11-02] MEDS: NICOTINE 14 MG/24 HR TRANSDERMAL TD SCH (09:00)
[2022-11-02] MEDS ORDERED: SERTRALINE 100 MG TAB PO SCH (09:00)
[2022-11-02] MEDS: FOLIC ACID 1MG TAB PO SCH (09:00)
[2022-11-02] MEDS ORDERED: amLODIPine 5 MG TAB PO SCH (09:00)
[2022-11-02] MEDS ORDERED: MIDAZOLAM INJ 2MG/2ML VIAL As Ordered ONE (09:42)
[2022-11-02] MEDS ORDERED: fentaNYL 250 MCG/5 ML INJECTION As Ordered ONE (09:42)
[2022-11-02] MEDS ORDERED: LIDOCAINE 1% SDV 30ML VIAL As Ordered ONE (09:54)
[2022-11-02] MEDS ORDERED: SUCCINYLCHOLINE 100MG/5ML SYRINGE As Ordered ONE (10:06)
[2022-11-02] MEDS ORDERED: METHYLENE BLUE 0.5% (5MG/ML) 10 ML AMP (PROVAYBLUE) As Ordered ONE (10:15)
[2022-11-02] MEDS ORDERED: ceFAZolin 2 GM/D5W 50 ML IV BAG As Ordered ONE (10:24)
[2022-11-02] MEDS: HEPARIN SOD (PORCINE) 5000UNITS/ML 1ML VIAL/SYRINGE As Ordered ONE ×2 (10:30→10:40)
[2022-11-02] MEDS ORDERED: ACETAMINOPHEN 1000MG 100ML IV BAG As Ordered ONE (10:33)
[2022-11-02] MEDS ORDERED: HYDROmorphone HCL 2MG/ML 1ML VIAL As Ordered ONE (11:39)
[2022-11-02] MEDS ORDERED: HYDROMORPHONE HCL 0.5 MG/ 0.5 ML SYRINGE IV PRN (13:35)
[2022-11-02] MEDS ORDERED: LR 1,000 ML IV SCH (13:35)
[2022-11-02] MEDS ORDERED: ONDANSETRON 4MG 2ML VIAL IV PRN (13:35)
[2022-11-02] MEDS ORDERED: fentaNYL 100 MCG/2 ML INJECTION IV PRN (13:35)
[2022-11-02] MEDS ORDERED: oxyCODONE 5MG TAB PO PRN ×2 (13:35→14:00)
[2022-11-02] MEDS ORDERED: ACETAMINOPHEN 500 MG TAB PO PRN (14:00)
[2022-11-02] MEDS ORDERED: MORPHINE 2 MG/ML 1ML VIAL IV PRN (14:00)
[2022-11-02 14:35] LABS: HEMATOCRIT 23.4 % (36.0-47.0); MEAN CORPUSCULAR HEMOGLOBIN 38.6 pg (27.0-33.0); MEAN CORPUSCULAR HGB CONC 34.2 g/dl (32.0-36.5); PLATELET COUNT, AUTOMATED 147 10^3/uL (150-450); RED BLOOD COUNT 2.07 10^6/uL (4.00-5.40); WHITE BLOOD COUNT 9.7 10^3/uL (4.0-10.0)
[2022-11-02 14:40] VITALS: BP 101/56; TEMP 97; O2SAT 100
[2022-11-02 15:10] LABS: BLOOD UREA NITROGEN < 5 MG/DL (9-23); CALCIUM LEVEL 7.6 MG/DL (8.5-10.1); CARBON DIOXIDE LEVEL 22 MMOL/L (20-31); CHLORIDE LEVEL 108 MMOL/L (98-107); CREATININE FOR GFR 0.52 MG/DL (0.55-1.30); GLOMERULAR FILTRATION RATE > 60.0 (>51); GLUCOSE, FASTING 157 MG/DL (60-100); MAGNESIUM LEVEL 1.5 MG/DL (1.8-2.4); SODIUM LEVEL 135 MMOL/L (136-145)
[2022-11-02] MEDS ORDERED: MAGNESIUM OXIDE 400MG TAB (MAG-OX) PO ONE (15:30)
[2022-11-02] MEDS ORDERED: MAGN400T2 PO (15:32)
[2022-11-02] MEDS ORDERED: RAME8TAB2 PO (15:32)
[2022-11-02] MEDS ORDERED: ACET-683 PO (15:32)
[2022-11-02] MEDS ORDERED: OXYC-517 PO (15:32)
[2022-11-02 16:35] LABS: OSMOLALITY URINE 315 MOSM/KG (50-1400); SODIUM,RANDOM URINE < 10 MMOL/L
== END 2022-11-02 16:55 | disposition home or self-care (01) | DRG 363 ==
LOC: M ICU 11:57 → OBSVTOIN 12:39 → EDSTATUS 11-02 08:30 → M MSPAV 11-02 14:53 → M ICU 11-02 15:36
PROVIDERS: ADMIT Internal Medicine; ATTEND Internal Medicine
PROC: 0HBT0ZZ Excision of Right Breast, Open Approach (ICD-10-PCS; principal; 2022-11-02 10:00)
PROC: 07B50ZZ Excision of Right Axillary Lymphatic, Open Approach (ICD-10-PCS; 2022-11-02 10:00)
DX: C50.811 Malignant neoplasm of overlapping sites of right female breast (principal); E83.42 Hypomagnesemia; E87.1 Hypo-osmolality and hyponatremia; D52.0 Dietary folate deficiency anemia; D69.59 Other secondary thrombocytopenia; I10 Essential (primary) hypertension; E87.6 Hypokalemia; F17.210 Nicotine dependence, cigarettes, uncomplicated; J44.9 Chronic obstructive pulmonary disease, unspecified; F41.9 Anxiety disorder, unspecified; L30.9 Dermatitis, unspecified; M85.80 Other specified disorders of bone density and structure, unspecified site; L64.0 Drug-induced androgenic alopecia; F10.10 Alcohol abuse, uncomplicated; G47.00 Insomnia, unspecified; Z79.899 Other long term (current) drug therapy

== ENCOUNTER → 2022-11-12 | Outpatient (REF) | payer OTHER, MEDICAID ==
[~2022-11-12] MED LIST changes: +ACET-683 PO; +CALC-356 PO; +MAGN400T2 PO; +OXYC-517 PO; +RAME8TAB2 PO; +ZOLO100T PO
[2022-11-12 17:16] LABS: BLOOD UREA NITROGEN 7 MG/DL (9-23); CALCIUM LEVEL 8.6 MG/DL (8.5-10.1); CARBON DIOXIDE LEVEL 30 MMOL/L (20-31); CHLORIDE LEVEL 106 MMOL/L (98-107); CREATININE FOR GFR 0.58 MG/DL (0.55-1.30); GLOMERULAR FILTRATION RATE > 60.0 (>51); GLUCOSE, FASTING 108 MG/DL (60-100); MAGNESIUM LEVEL 1.7 MG/DL (1.8-2.4); POTASSIUM SERUM 4.3 MMOL/L (3.5-5.1); SODIUM LEVEL 140 MMOL/L (136-145)
== END ==
LOC: M LAB REF 16:01
PROVIDERS: ATTEND Pediatrics
DX: E83.42 Hypomagnesemia (principal); E87.6 Hypokalemia

== ENCOUNTER → 2022-12-14 | Outpatient (CLI) | payer OTHER | LOC: M ONCR 13:53 | PROVIDERS: ATTEND General Practice | DX: C50.411 Malignant neoplasm of upper-outer quadrant of right female breast (principal); F17.210 Nicotine dependence, cigarettes, uncomplicated; Z71.2 Person consulting for explanation of examination or test findings; Z72.89 Other problems related to lifestyle; Z79.899 Other long term (current) drug therapy; Z92.21 Personal history of antineoplastic chemotherapy; Z98.890 Other specified postprocedural states ==

== ENCOUNTER → 2022-12-20 | Outpatient (REF) | payer OTHER ==
[2022-12-20 13:27] LABS: BLOOD UREA NITROGEN 6 MG/DL (9-23); CALCIUM LEVEL 9.7 MG/DL (8.5-10.1); CARBON DIOXIDE LEVEL 30 MMOL/L (20-31); CHLORIDE LEVEL 95 MMOL/L (98-107); CREATININE FOR GFR 0.59 MG/DL (0.55-1.30); GLOMERULAR FILTRATION RATE > 60.0 (>51); GLUCOSE, FASTING 54 MG/DL (60-100); MAGNESIUM LEVEL 1.9 MG/DL (1.8-2.4); POTASSIUM SERUM 3.7 MMOL/L (3.5-5.1); SODIUM LEVEL 135 MMOL/L (136-145)
== END ==
LOC: M LAB REF 12:31
PROVIDERS: ATTEND Pediatrics
DX: E83.42 Hypomagnesemia (principal); E87.6 Hypokalemia

== ENCOUNTER → 2023-01-20 | Outpatient (RCR) | payer OTHER ==
[~2023-01-20] MED LIST changes: +CLIN1GEL3 TOP; +ESSE250T PO; +FLUOCRE TOP; +LETR2.5T2 PO; +TRIA1CR80 TOP
== END ==
LOC: M ONCR 12-23 14:00
PROVIDERS: ATTEND General Practice
DX: Z51.0 Encounter for antineoplastic radiation therapy (principal); C50.411 Malignant neoplasm of upper-outer quadrant of right female breast

== ENCOUNTER 2023-02-17 09:59 | Outpatient (RCR) | payer OTHER ==
[~2023-02-17 09:59] MED LIST changes: +MAGN400T35 PO
== END 2023-02-20 ==
LOC: M ONCR 09:59
PROVIDERS: ATTEND General Practice
DX: Z51.0 Encounter for antineoplastic radiation therapy (principal); C50.411 Malignant neoplasm of upper-outer quadrant of right female breast

== ENCOUNTER → 2023-04-05 | Outpatient (REF) | payer OTHER ==
[~2023-04-05] MED LIST changes: +PROC10TA5
[2023-04-05 18:00] LABS: THYROID STIMULATING HORMONE 1.307 uIU/ML (0.55-4.78)
== END ==
LOC: M LAB REF 16:41
PROVIDERS: ATTEND Pediatrics
DX: D75.89 Other specified diseases of blood and blood-forming organs (principal)

== ENCOUNTER → 2023-05-17 | Outpatient (CLI) | payer OTHER ==
[~2023-05-17] MED LIST changes: -PROC10TA5
== END ==
LOC: M WHC 08:30
PROVIDERS: ATTEND Nurse Practitioner Women's Health
DX: C50.911 Malignant neoplasm of unspecified site of right female breast (principal)

== ENCOUNTER → 2023-05-31 | Outpatient (CLI) | payer OTHER | LOC: M PLAIMG 08:03 | PROVIDERS: ATTEND Internal Medicine Medical Oncology | DX: C50.911 Malignant neoplasm of unspecified site of right female breast (principal) ==

== ENCOUNTER → 2023-08-19 | Outpatient (CLI) | payer OTHER ==
[~2023-08-19] MED LIST changes: +AMLO2.5T3 PO; +GABA-282 PO
== END ==
LOC: M ONCR 10:14
PROVIDERS: ATTEND General Practice
DX: C50.411 Malignant neoplasm of upper-outer quadrant of right female breast (principal); F17.210 Nicotine dependence, cigarettes, uncomplicated; R53.83 Other fatigue; Z79.899 Other long term (current) drug therapy

== ENCOUNTER → 2023-09-02 | Outpatient (CLI) | payer OTHER | LOC: M CARPUL 09:23 | PROVIDERS: ATTEND Internal Medicine Medical Oncology | DX: C50.911 Malignant neoplasm of unspecified site of right female breast (principal) ==

== ENCOUNTER → 2023-10-10 | Outpatient (CLI) | payer OTHER ==
[~2023-10-10] MED LIST changes: +LIDOCAINE 1% MDV 20ML VIAL As Ordered ONE; +MIDAZOLAM INJ 2MG/2ML VIAL As Ordered ONE; +NS 1,000 ML IV SCH; +fentaNYL 100 MCG/2 ML INJECTION As Ordered ONE
[2023-10-10 07:06] VITALS: TEMP 97.4
[2023-10-10 08:46] VITALS: BP 137/79; O2SAT 98
== END ==
LOC: M IRPRO 06:41
PROVIDERS: ATTEND Internal Medicine Medical Oncology
DX: C50.919 Malignant neoplasm of unspecified site of unspecified female breast (principal)
CPT/HCPCS: 36590; 99152; J2250; J3010

== ENCOUNTER → 2023-12-05 | Outpatient (CLI) | payer OTHER ==
[~2023-12-05] MED LIST changes: +GABA-1172 PO; -GABA-282 PO; +ISOVUE-370 76% 100ML VIAL As Ordered ONE; -LIDOCAINE 1% MDV 20ML VIAL As Ordered ONE; -MIDAZOLAM INJ 2MG/2ML VIAL As Ordered ONE; -NS 1,000 ML IV SCH; -fentaNYL 100 MCG/2 ML INJECTION As Ordered ONE
== END ==
LOC: M RAD 16:04
PROVIDERS: ATTEND Pediatrics
DX: R07.9 Chest pain, unspecified (principal)

== ENCOUNTER → 2024-01-02 | Outpatient (REF) | payer OTHER ==
[~2024-01-02] MED LIST changes: -CYCL5TAB PO; +CYCL5TAB4 PO; -ISOVUE-370 76% 100ML VIAL As Ordered ONE; +LOPE2CAP PO; +NERL40TA PO
[2024-01-02 14:02] LABS: BLOOD UREA NITROGEN 9 MG/DL (9-23); CALCIUM LEVEL 9.7 MG/DL (8.5-10.1); CARBON DIOXIDE LEVEL 29 MMOL/L (20-31); CHLORIDE LEVEL 100 MMOL/L (98-107); CHOLESTEROL LEVEL 249 MG/DL (<200); CHOLESTEROL RISK RATIO 2.93 (<5); CREATININE FOR GFR 0.61 MG/DL (0.55-1.30); GLOMERULAR FILTRATION RATE > 60.0 (>51); GLUCOSE, FASTING 91 MG/DL (60-100); HDL CHOLESTEROL 84.8 MG/DL (>40); NON-HDL-C 164.2 MG/DL; POTASSIUM SERUM 4.9 MMOL/L (3.5-5.1); SODIUM LEVEL 131 MMOL/L (136-145); THYROID STIMULATING HORMONE 1.863 uIU/ML (0.55-4.78); TRIGLYCERIDES LEVEL 61 MG/DL (<150)
== END ==
LOC: M LAB REF 13:29
PROVIDERS: ATTEND Pediatrics
DX: E78.5 Hyperlipidemia, unspecified (principal); E87.1 Hypo-osmolality and hyponatremia

== ENCOUNTER 2024-03-02 21:50 | Emergency (ER) | payer OTHER ==
[~2024-03-02] VITALS: Ht 167.6 cm; Wt 60.8 kg
[2024-03-02 21:55] VITALS: BP 113/73; TEMP 97.8; O2SAT 97
[2024-03-02 23:02] LABS: BASO % 0.3 % (0.0-1.0); EOS # 0.3 10^3/uL (0.0-0.5); HEMATOCRIT 37.8 % (36.0-47.0); HEMOGLOBIN 13.7 g/dl (12.0-15.5); LYMPH # 1.3 10^3/uL (1.5-5.0); LYMPH % 10.2 % (24.0-44.0); MEAN CORPUSCULAR HEMOGLOBIN 34.6 pg (27.0-33.0); MEAN CORPUSCULAR HGB CONC 36.2 g/dl (32.0-36.5); MEAN CORPUSCULAR VOLUME 95.5 fl (80.0-96.0); MONO # 0.9 10^3/uL (0.0-0.8); MONO % 7.1 % (2.0-8.0); NEUTROPHILS # 10.4 10^3/uL (1.5-8.5); NEUTROPHILS % 80.1 % (36.0-66.0); PLATELET COUNT, AUTOMATED 313 10^3/uL (150-450); RED BLOOD COUNT 3.96 10^6/uL (4.00-5.40)
[2024-03-02 23:29] LABS: LIPASE 38 U/L (12-53)
[2024-03-02 23:33] LABS: ALBUMIN 3.7 G/DL (3.2-5.2); ALKALINE PHOSPHATASE 83 U/L (35-104); ALT/SGPT 20 U/L (7.0-40); AST/SGOT 17 U/L (<34); BILIRUBIN,DIRECT 0.1 MG/DL (<0.4); BILIRUBIN,TOTAL 0.5 MG/DL (0.3-1.2); BLOOD UREA NITROGEN < 5 MG/DL (9-23); CALCIUM LEVEL 9.7 MG/DL (8.5-10.1); CARBON DIOXIDE LEVEL 28 MMOL/L (20-31); CHLORIDE LEVEL 89 MMOL/L (98-107); CREATININE FOR GFR 0.54 MG/DL (0.55-1.30); GLOMERULAR FILTRATION RATE > 60.0 (>51); GLUCOSE, FASTING 90 MG/DL (60-100); POTASSIUM SERUM 4.1 MMOL/L (3.5-5.1); SODIUM LEVEL 126 MMOL/L (136-145); TOTAL PROTEIN 7.3 G/DL (5.7-8.2)
== END 2024-03-03 04:38 | disposition left against medical advice (07) ==
LOC: M ED 21:50
DX: Z53.21 Procedure and treatment not carried out due to patient leaving prior to being seen by health care provider (principal)

== ENCOUNTER → 2024-03-06 | Outpatient (REF) | payer OTHER ==
[2024-03-06 16:53] LABS: APPEARANCE, URINE CLEAR (CLEAR); BACTERIA, URINE AUTO NEGATIVE (NEGATIVE); BILIRUBIN, URINE AUTO NEGATIVE (NEGATIVE); BLOOD, URINE BLOOD NEGATIVE (NEGATIVE); COLOR, URINE STRAW (YELLOW); GLUCOSE, URINE (UA) AUTO 1+ mg/dL (NEGATIVE); KETONE, URINE AUTO NEGATIVE (NEGATIVE); LEUKOCYTE ESTERASE, URINE AUTO NEGATIVE (NEGATIVE); NITRITE, URINE AUTO NEGATIVE (NEGATIVE); PROTEIN, URINE AUTO NEGATIVE (NEGATIVE); RBC, URINE AUTO 0 /HPF (0-3); SPECIFIC GRAVITY URINE AUTO 1.004 (1.002-1.035); SQUAMOUS EPITHELIAL CELL UR AU 1 /HPF (0-6); UROBILINOGEN, URINE AUTO 0.2 mg/dL (0.0-2.0); WBC, URINE AUTO 1 /HPF (0-3)
[2024-03-06 18:24] LABS: BASO # 0.1 10^3/uL (0.0-0.2); BASO % 0.7 % (0.0-1.0); EOS # 0.2 10^3/uL (0.0-0.5); EOS % 2.5 % (0.0-3.0); HEMOGLOBIN 14.2 g/dl (12.0-15.5); LYMPH # 1.3 10^3/uL (1.5-5.0); LYMPH % 16.7 % (24.0-44.0); MEAN CORPUSCULAR HEMOGLOBIN 34.1 pg (27.0-33.0); MEAN CORPUSCULAR HGB CONC 34.6 g/dl (32.0-36.5); MEAN CORPUSCULAR VOLUME 98.3 fl (80.0-96.0); MONO # 0.8 10^3/uL (0.0-0.8); NEUTROPHILS # 5.3 10^3/uL (1.5-8.5); NEUTROPHILS % 69.6 % (36.0-66.0); PLATELET COUNT, AUTOMATED 408 10^3/uL (150-450); RED BLOOD COUNT 4.17 10^6/uL (4.00-5.40); WHITE BLOOD COUNT 7.6 10^3/uL (4.0-10.0)
[2024-03-06 18:52] LABS: BLOOD UREA NITROGEN 6 MG/DL (9-23); CALCIUM LEVEL 9.4 MG/DL (8.5-10.1); CARBON DIOXIDE LEVEL 29 MMOL/L (20-31); CHLORIDE LEVEL 97 MMOL/L (98-107); CREATININE FOR GFR 0.52 MG/DL (0.55-1.30); GLOMERULAR FILTRATION RATE > 60.0 (>51); GLUCOSE, FASTING 55 MG/DL (60-100); POTASSIUM SERUM 4.4 MMOL/L (3.5-5.1); SODIUM LEVEL 134 MMOL/L (136-145)
== END ==
LOC: M LAB REF 16:08
PROVIDERS: ATTEND Pediatrics
DX: R35.0 Frequency of micturition (principal)

== ENCOUNTER 2024-04-13 08:27 | Outpatient (RCR) | payer OTHER | END 2024-04-20 | LOC: M PT 08:27 | PROVIDERS: ATTEND Internal Medicine Medical Oncology | DX: I89.0 Lymphedema, not elsewhere classified (principal) ==

== ENCOUNTER 2024-04-25 08:20 | Outpatient (RCR) | payer OTHER | END 2024-05-21 | LOC: M PT 08:20 | PROVIDERS: ATTEND Internal Medicine Medical Oncology | DX: I89.0 Lymphedema, not elsewhere classified (principal) ==

== ENCOUNTER → 2024-05-22 | Outpatient (CLI) | payer OTHER | LOC: M WHC 12:24 | PROVIDERS: ATTEND Nurse Practitioner Women's Health | DX: C50.919 Malignant neoplasm of unspecified site of unspecified female breast (principal); M81.0 Age-related osteoporosis without current pathological fracture ==

== ENCOUNTER → 2024-06-25 | Outpatient (REF) | payer OTHER ==
[2024-06-25 14:03] LABS: TOTAL 25(OH) VITAMIN D 29.4 NG/ML (20.0-100.0)
[2024-06-25 14:09] LABS: BLOOD UREA NITROGEN 9 MG/DL (9-23); CALCIUM LEVEL 10.4 MG/DL (8.5-10.1); CARBON DIOXIDE LEVEL 28 MMOL/L (20-31); CHLORIDE LEVEL 100 MMOL/L (98-107); CHOLESTEROL LEVEL 267 MG/DL (<200); CREATININE FOR GFR 0.61 MG/DL (0.55-1.30); GLOMERULAR FILTRATION RATE > 90.0 (>51); GLUCOSE, FASTING 62 MG/DL (60-100); HDL CHOLESTEROL 80.9 MG/DL (>40); LDL CHOLESTEROL 172.3 MG/DL (<100); NON-HDL-C 186.1 MG/DL; POTASSIUM SERUM 4.7 MMOL/L (3.5-5.1); SODIUM LEVEL 136 MMOL/L (136-145); TRIGLYCERIDES LEVEL 69 MG/DL (<150)
== END ==
LOC: M LAB REF 12:17
PROVIDERS: ATTEND Pediatrics
DX: E78.5 Hyperlipidemia, unspecified (principal); E55.9 Vitamin D deficiency, unspecified; E87.1 Hypo-osmolality and hyponatremia

== ENCOUNTER → 2024-08-27 | Outpatient (REF) | payer OTHER ==
[~2024-08-27] MED LIST changes: -ESSE250T PO; +MAGN250T17 PO
[2024-08-27 13:28] LABS: ALT/SGPT 38.0 U/L (7.0-40); AST/SGOT 41.0 U/L (<34); CHOLESTEROL LEVEL 168.0 MG/DL (<200); CHOLESTEROL RISK RATIO 2.07 (<5); LDL CHOLESTEROL 76.0 MG/DL (<100); NON-HDL-C 87.2 MG/DL; TRIGLYCERIDES LEVEL 56.0 MG/DL (<150)
== END ==
LOC: M LAB REF 12:25
PROVIDERS: ATTEND Pediatrics
DX: F10.20 Alcohol dependence, uncomplicated (principal); E78.5 Hyperlipidemia, unspecified

== ENCOUNTER 2024-10-02 09:33 | Day surgery (SDC) | payer OTHER ==
[~2024-10-02] VITALS: Ht 167.6 cm; Wt 59.5 kg
[~2024-10-02 09:33] MED LIST changes: +ANOR1AER; +ATOR40TA75 PO; +IRON65TA2 PO; +OMEP-173 PO; +VITA200032 PO
[2024-10-02 11:13] VITALS: TEMP 97.6
[2024-10-02 11:30] VITALS: BP 117/79; O2SAT 100
[2024-10-02] MEDS ORDERED: ALBUTEROL 6.7 GM INHALER **FOR ANES. CART/OMNICELL ONLY As Ordered ONE (11:32)
== END 2024-10-02 11:37 | disposition home or self-care (01) ==
LOC: M OPP 09:33
PROVIDERS: ATTEND Surgery
DX: Z12.11 Encounter for screening for malignant neoplasm of colon (principal); D12.3 Benign neoplasm of transverse colon; K64.9 Unspecified hemorrhoids; Z79.899 Other long term (current) drug therapy; J44.9 Chronic obstructive pulmonary disease, unspecified; F17.210 Nicotine dependence, cigarettes, uncomplicated

== ENCOUNTER → 2025-01-09 | Outpatient (CLI) | payer OTHER ==
[~2025-01-09] MED LIST changes: +NALT50TA4
== END ==
LOC: M CARPUL 15:41
DX: C50.919 Malignant neoplasm of unspecified site of unspecified female breast (principal)

== ENCOUNTER → 2025-02-01 | Outpatient (CLI) | payer OTHER ==
[2025-02-01 12:54] LABS: BASO # 0.1 10^3/uL (0.0-0.2); BASO % 0.7 % (0.0-1.0); EOS # 0.2 10^3/uL (0.0-0.5); EOS % 2.6 % (0.0-3.0); LYMPH # 1.5 10^3/uL (1.5-5.0); LYMPH % 20.1 % (24.0-44.0); MONO # 0.7 10^3/uL (0.0-0.8); MONO % 9.4 % (2.0-8.0); NEUTROPHILS # 4.8 10^3/uL (1.5-8.5); NEUTROPHILS % 66.8 % (36.0-66.0); PLATELET COUNT, AUTOMATED 323 10^3/uL (150-450)
[2025-02-01 12:56] LABS: CALCIUM LEVEL 8.6 MG/DL (8.5-10.1); CARBON DIOXIDE LEVEL 27 MMOL/L (20-31); CHLORIDE LEVEL 99 MMOL/L (98-107); CREATININE FOR GFR 0.56 MG/DL (0.55-1.30); GLOMERULAR FILTRATION RATE > 90.0 (>51); IRON (FE) 54 UG/DL (50-170); PERCENT SATURATION 15.8 % (13.2-45.0); POTASSIUM SERUM 4.6 MMOL/L (3.5-5.1); SODIUM LEVEL 132 MMOL/L (136-145)
[2025-02-01 12:59] LABS: VITAMIN B12 LEVEL 989 PG/ML (211-911)
== END ==
LOC: M WUC 10:11
PROVIDERS: ATTEND Pediatrics
DX: E87.1 Hypo-osmolality and hyponatremia (principal); D64.9 Anemia, unspecified

== ENCOUNTER 2025-02-11 09:28 | Outpatient (RCR) | payer OTHER | END 2025-02-20 | LOC: M PT 09:28 | PROVIDERS: ATTEND Internal Medicine Medical Oncology | DX: I89.0 Lymphedema, not elsewhere classified (principal) ==